=== PATIENT | female | born 1955 ===

== ENCOUNTER 2017-12-01 18:19 | Emergency (ER) | payer SELFPAY ==
[~2017-12-01] VITALS: Ht 152.4 cm; Wt 46.8 kg
[2017-12-01 18:23] VITALS: BP 152/79
[2017-12-01] MEDS ORDERED: PROPARACAINE OPHTH 0.5%, 15ML ONE (18:41)
[2017-12-01] MEDS ORDERED: EYE WASH SOLUTION 120ML ONE (18:49)
[2017-12-01] MEDS ORDERED: PROPARACAINE OPHTH 0.5%, 15ML LEFTEYE ONE (19:00)
[2017-12-01] MEDS ORDERED: FLUORESCEIN OPHTHALMIC 1 MG STRIP LEFTEYE ONE (19:00)
== END 2017-12-01 19:48 | disposition home or self-care (01) ==
LOC: ED 18:40
DX: S05.02XA Injury of conjunctiva and corneal abrasion without foreign body, left eye, initial encounter (principal); H20.012 Primary iridocyclitis, left eye; X58.XXXA Exposure to other specified factors, initial encounter; Y93.89 Activity, other specified; Y92.89 Other specified places as the place of occurrence of the external cause; Y99.8 Other external cause status
CPT/HCPCS: 99283